=== PATIENT | male | born 1995 | race African-American/Black ===

== ENCOUNTER 2017-11-02 09:57 | Emergency (ER) | payer OTHER, MEDICAID ==
[~2017-11-02] VITALS: Ht 172.7 cm; Wt 74.0 kg
[2017-11-02] MEDS ORDERED: IBUPROFEN 600MG TABLET PO STA (10:46)
[2017-11-02] MEDS ORDERED: ACETAMINOPHEN 325MG TABLET PO STA (10:46)
[2017-11-02 11:54] LABS: CHLORIDE 101 mEq/L (98-107)
[2017-11-02 11:57] LABS: HEMATOCRIT. 46.6 % (42.0-52.0); HEMOGLOBIN. 15.8 g/dL (14.0-18.0); MEAN CORPUSCULAR HEMOGLOBIN 32.1 pg (28.0-32.0); MEAN CORPUSCULAR VOLUME 94.4 fL (80.0-94.0); MEAN PLATELET VOLUME 10.3 fl (7.4-10.4); RED BLOOD CELL COUNT 4.94 mill/uL (4.7-6.1); RED CELL DISTRIBUTION WIDTH 13.5 % (11.6-14.6)
[2017-11-02 12:13] LABS: PLATELET 73 x1000/uL (130-400)
[2017-11-02 12:45] VITALS: BP 116/62
== END 2017-11-02 12:47 | disposition home or self-care (01) ==
LOC: ER 09:57
DX: R50.9 Fever, unspecified (principal); R07.0 Pain in throat; D69.6 Thrombocytopenia, unspecified; Z88.0 Allergy status to penicillin
CPT/HCPCS: 36415; 80053; 85025; 87804; 99284; Z7610